=== PATIENT | male | born 1950 | race Caucasian/White ===

== ENCOUNTER → 2021-04-18 | Outpatient (CLI) | payer OTHER ==
[~2021-04-18] MED LIST: ALDACTONE25 MG PO; LASIX 40 MG TAB40 M1 GT; LIPITOR40 MG PO; LOVENOX; METOPROLOL 100100 M1 PO; MINOXIDIL2.5 MG PO
--- NOTE | 2021-04-27 18:17 | SLE ---
[facility] [place] [address] POLYSOMNOGRAPHY STUDY Name: ALISSA ANSARI Room #: REG [facility]#: [id number] Admission: 04/18/21 Attend Phys: Nestor Galarza MD Discharge: Date of : 48 Report #: [id number] THIS REPORT FOR: cc: Nestor Galarza MD, Aman U. MD ~ cc: Rao Penny MD DATE OF SERVICE: 04/18/2021 HOME SLEEP STUDY ATTENDING PHYSICIAN: Dr. Rao Penny. The patient is 70 years old who weighs 278 pounds with a BMI of 39.9. The patient underwent home sleep study performed at [facility]. The patient's [place] score was 5. Total recording time was 448 minutes. During the night study, the patient had 47 obstructive apneas, 10 central apneas, no mixed apneas and 87 hypopneas. The patient's AHI was 20 per hour. Supine 16 per hour. Nocturnal oximetry study revealed an average oxygen saturation of 92% with a lowest of 79%. 53 minutes were spent with oxygen saturation less than 90%. Mean heart rate 58 beats per minute with a maximum of 117 beats per minute. IMPRESSION: 1. Moderate obstructive sleep apnea at an AHI of 20 per hour. 2. Nocturnal hypoxia secondary to obstructive sleep apnea and suspected hypoventilation. RECOMMENDATIONS: 1. The patient would benefit from treatment of sleep apnea with CPAP. 2. Once the patient is optimally, then follow up in 4-6 weeks to assess compliance and to document clinical improvement. 3. Weight loss is strongly advised. 4. Avoid [employer] depressants. 5. Cautioned regarding driving until symptoms of sleep apnea resolve with above recommendations. <ELECTRONICALLY SIGNED> By: Nino Abarca MD 04/27/21 1817 1222 [id number] Nino Abarca MD /nt
== END ==
LOC: SLEEPLAB 16:37
PROVIDERS: ATTEND Internal Medicine Nephrology
DX: G47.33 Obstructive sleep apnea (adult) (pediatric) (principal); G47.34 Idiopathic sleep related nonobstructive alveolar hypoventilation